=== PATIENT | male | born 1945 | race Caucasian/White ===

== ENCOUNTER 2024-10-29 16:55 | Inpatient (IN) | payer OTHER, SELFPAY ==
[2024-10-29] VITALS (11 sets, daily range): BP systolic 113–151; BP diastolic 72–91
--- NOTE | 2024-10-29 08:09 | W.PN.CARDCBS ---
Addendum entered and electronically signed by Joel Antunez DO 10/29/24 13:37:
I saw and examined the patient.
The Reactor Service Operator's note was reviewed and I agree with the note.
Comment:
See update note for discussion on ICD.
Original Note:
Today's Communication / Plan
-
ICD implant today
restart OAC post op when stable
monitor tele 24h post procedure
Impression / Plan
-
This is the H&P summary.
Full H&P scanned into chart.
PCP: Dariel Arevalo MD
CDY: Jason Esteves MD
78 yo hx of HTN, LVH, FAHAD on CPAP, PAF s/p PVI (01/2020) off anticoagulation presenting with several weeks of intermittent palpitations and SOB. He became diaphoretic and dizzy after shower, brought to ER, initial EKG WCT at 180 with normal BP,
plan was to cardiovert but after sedation he converted to SR with PACs. He was given a diltiazem bolus and etomidate. He is now in rate controlled AF. Initial EKG favor AF or flutter with aberrancy with baseline RBBB vs VT.
Taken to laborer construction or leak gang however prior to gaining access or sedation went back into WCT, again suspicious for monomorphic VT, although also may have been SVT with aberrancy. He was cardioverted to SR with PVCs, and PACs, given Amiodarone bolus 150mg X 1.
LHC 7/2 with mid/distal RCA 100% occlusion, unsuccessful PCI attempt. Upon return from laborer construction or leak gang, he again went into WCT 180s, more regular w/RBBB. Decision was to cardiovert but after given amiodarone and IV lidocaine, he then did spontaneously
convert to SR.
It is unclear if this is scar VT v. AFlutter w/aberrancy, but given cath report would favor scar VT at this point.
Echo 7/2- preserved LVSF, EF 50-55%, basal/mid inferoseptal/inf HK, severe biatrial dilation, mod MR
IMPRESSION:
WCT, VT v. SVT w/aberrancy
CAD, RCA KINESEOLOGIST, from cath 10/24/24
Mildly elevated troponin- non ischemic myocardial injury r/t arrhythmia/cardioversion
BLE edema w/LLE DVT, 10/24/24
PAF w/prior PVI (01/2020, at w/Dr. Peck)
Recurrent AF/AFlutter
Mod MR
LUTHER, resolved
HTN
LVH
FAHAD/CPAP
Anxiety
PLAN:
New onset WCT that was unclear if scar VT v/AFlutter w/aberrancy
One EKG sent from [facility]- not the one with VT- requested EKGs to best review
[facility] with RCA KINESEOLOGIST, echo with inferoseptal/inferior HK w/preserved EF
would move forward with secondary prevention ICD implant today
Amio gtt switched 400mg PO TID, home on 200 BID for 30 days, then decrease to 200mg/daily
Continue metoprolol xl 100mg/daily
[id number] and will resume OAC post device when stable- had started eliquis at [facility] but on hold now for OR today
New finding of LLE DVT- to be anticoagulated with eliquis post procedure- will need followup LE US per Dr. Esteves in 6 months
LUTHER noted- creat 1.46/GFR 59 initially, now resolved to 0.96/>60 this morning
Progress Note - Winding Rack Operator
Subjective
Date of Service: October 29, 2024
--- NOTE | 2024-10-29 12:07 | W.PN.UPDATE ---
Update Note
Progress Note Update
Briefly, patient is a very pleasant 78-year-old male with a past medical history significant for hypertension, LVH, sleep apnea on CPAP, A-fib status post PVI 2020, CAD nonrevascularizable with regional wall motion abnormality on echocardiogram
(inferoseptal and inferior hypokinesis EF 55-60), valvular heart disease with mild to moderate MR, lower extremity DVT who experienced a wide-complex tachycardia at 180 bpm (RB NW axis, discordant II/III with late transition V5-V6 which is different
from patient's sinus rhythm with RBBB at baseline) treated with amiodarone and direct-current cardioversion. Patient underwent left heart catheterization which demonstrated chronic total occlusion and inability to revascularize. Patient's
echocardiogram as mentioned demonstrated an EF of 55-60% with regional wall motion abnormality (inferior, inferoseptal). We had discussed that electrophysiology study may help to differentiate atrial versus ventricular arrhythmias however if
electrophysiology study is unremarkable I remain concerned that patient's wide-complex tachycardia by morphology and history is consistent with ventricular tachycardia. In review of patient's EKGs and rhythm strips, there appears to be evidence of
A-V dissociation with this wide-complex rhythm. In the setting of patient's ischemic heart disease which is not revascularizable, regional wall motion abnormality concerning for scar, sustained monomorphic wide-complex tachycardia concerning for
ventricular tachycardia which is now being treated by amiodarone and had received cardioversions for samaritan of sinus rhythm, I believe that patient would benefit from implant of a dual-chamber secondary prevention ICD. Additionally, patient
had previously experienced diaphoresis and dizziness associated with this wide-complex tachycardia concerning for ventricular tachycardia. Regarding ICD, we discussed ICD indications for primary prevention and secondary prevention patients
including 5 year sudden risk. We also discussed implant procedure in detail including an approximate 1:1000 risk of PA/stroke/ and a 1% risk of pneumothorax/tamponade/infection/bleeding. We discussed the less than 1% risk of wires
bending, breaking, or tearing through the lifetime of the device requiring surgery or procedure to fix. We discussed the less than 1% risk of device/lead advisory or recall and requirement for monitoring for surveillance. We also discussed post
procedure implant restrictions including positions to avoid with implant arm for first six weeks after implant as well as driving restrictions. We discussed post implant possibility of inappropriate shocks from device and programming strategies to
minimize this risk. I took time to answer all questions to patient and his . Patient verbalized understanding and agreed with this plan. Consent signed. Patient remains NPO.
--- NOTE | 2024-10-29 14:57 | W.ICD.CONTRA ---
Post ICD/WAGON WASHER-D
-
History of [place]?: No
LV Function
Left ventricular function study result?: Ejection Fraction >/= 40%
ACEI/ARB/ARNI
Patient already on ACEI/ARB/ARNI: No
ACEI/ARB/ARNI Not Indicated: Left Ventricular EF >/= 40%
Beta-Dilia
Patient already on Beta Dilia: Yes
--- NOTE | 2024-10-29 16:33 | ITS.CL.ICD ---
Grants Analyst - ICD
Implantable Cardioverter Defibrillator
Procedure Report:
Primary Nip Wrapper: Dr Brennen Esteves
Procedure Date: 10/29/2024
Name of procedure:
1. Placement of a dual-chamber ICD
2. Subclavian venography
History:
1. Patient is a very pleasant 78-year-old male with a past medical history significant for hypertension, LVH, sleep apnea on CPAP, A-fib status post PVI 2020, CAD nonrevascularizable with regional wall motion abnormality on echocardiogram
(inferoseptal and inferior hypokinesis EF 55-60), valvular heart disease with mild to moderate MR, lower extremity DVT who experienced a wide-complex tachycardia at 180 bpm (RB NW axis, discordant II/III with late transition V5-V6 which is different
from patient's sinus rhythm with RBBB at baseline) treated with amiodarone and direct-current cardioversion. Patient underwent left heart catheterization which demonstrated chronic total occlusion and inability to revascularize. Patient's
echocardiogram as mentioned demonstrated an EF of 55-60% with regional wall motion abnormality (inferior, inferoseptal). In review of patient's EKGs and rhythm strips, there appears to be evidence of A-V dissociation with this wide-complex rhythm
more consistent with ventricular tachycardia. In the setting of ischemic heart disease which was not revascularizable, regional wall motion abnormality concerning for score, sustained monomorphic wide-complex tachycardia concerning for ventricular
tachycardia treated with amiodarone and defibrillation, patient to undergo elective secondary prevention ICD implantation.
2. Please refer to H&P for complete history.
Indication:
Sustained monomorphic ventricular tachycardia
See above
Methods:
After informed consent was obtained, the patient was brought to the EP laboratory in a postabsorptive, nonsedated state. Peripheral IV access was established. Prophylactic antibiotics were administered prior to incision. Continuous ECG, blood
pressure, and pulse oximetry were initiated. Cardioversion patch electrodes were placed on the patient's chest and back. A grounding patch was applied to the skin. Sedation was administered by anesthesia services.
In order to define the extrathoracic portion of the subclavian vein and exclude significant venous obstruction or anomalous anatomy, subclavian venography was performed prior to the procedure. Using the patient's left peripheral IV, contrast was
injected and images were recorded. The left subclavian vein and SVC were found to be widely patent.
The left chest was prepared and draped in a sterile fashion. A time-out was performed. Local anesthesia was injected in the subcutaneous tissue in the infraclavicular area. An incision was made medial to the deltopectoral groove. The subcutaneous
tissue was dissected the level of the prepectoral fascia. A subcutaneous pocket was created. Under fluoroscopic guidance and with the assistance of the images from the venogram, 2 separate venipunctures were made using micropuncture and modified
Seldinger technique. These were performed in the extrathoracic portion of the subclavian vein. Guidewires were passed and two peel-away sheaths were placed, and used to advance leads into the circulation.
Using fluoroscopic guidance, the leads were positioned. The RV lead was advanced to the RV/outflow tract. Ventricular ectopy was recorded. Lead was gently retracted from the RVOT brief ventricular ectopy occurred and lead was withdrawn into the
right atrium. Spontaneous ectopy continued and sustained ventricular tachycardia was noted with a cycle length of 290 ms. This did not self terminate and patient was synchronized cardioverted to sinus rhythm. Under fluoroscopy again RV lead was
gently advanced in the RVOT with documentation of ventricular ectopy. Lead was gently withdrawn and placed in the RV apical septum. Images were taken in VALENTIN and GEORGIAN views to ensure appropriate lead placement. The lead tip was subsequently
positioned on the apical septum. Adequate sensing and pacing parameters were found, and no diaphragmatic stimulation was seen with high-output pacing. No further spontaneous sustained ventricular tachycardia was noted.
Next, the right atrial lead was positioned in the right atrial appendage. Adequate sensing and pacing parameters were found, and no diaphragmatic stimulation was seen with high-output pacing. Both sheaths were split, and the leads were secured to
the fascia with Ethibond ties.
The pocket was flushed with antibiotic solution and hemostasis was assured. The generator was connected to the leads and placed inside the pocket. Antibiotic envelope was used. Floseal was applied. The wound was closed with 3 running layers of
absorbable suture, and steri-strips were applied. Dressing applied over steri-strips in standard fashion.
Following the procedure, the patient was taken to the recovery area in stable condition. A chest x-ray was obtained in the holding area.
Lead parameters and device programming:
- RA Lead (Tim, Model IJL2264/52, #[id number]): Sensing 3.0 mV, Pacing threshold 1.0 V at 0.4 ms, Imp 440 ohm
- RV Lead (Tim, Model [id number]/65, #[id number]): Sensing 5.7 mV, Pacing threshold 0.5 V at 0.4 ms, Imp 500 ohm, HV impedance 65 ohm
- Device: Tim, Model [id number] ICD (#[id number]), programmed DDDR 60-120 ppm
- Zones: Monitor 150�171, VT zone 171�200 with ATP with shock, VF zone greater than 200 ATP while charging with shock
Conclusions:
1. Successful placement of a secondary prevention dual-chamber ICD
2. Subclavian venography
Recommendations:
- Admit
- Portable chest x-ray in recovery or room.
- Device interrogation in a.m.
- IV antibiotics while the patient is admitted.
- Pressure dressing to be removed in AM, aquacell to remain until wound check
- If patient and site stable, plan to resume Eliquis
- Continue amiodarone 400 mg 3 times daily with planned reduction to 200 mg 2 times daily at time of discharge
- Follow-up for incision check in the office in 7-10 days post-discharge
Joel Antunez DO, [facility], [facility]
Clinical Cardiac It Security Project Manager
cc: Dariel Arevalo MD; Jason Esteves MD
[2024-10-29] MEDS: LASIX 40 MG IV (16:42)
[2024-10-29] MEDS: PACERONE 400 MG PO ×2 (16:42→22:45)
--- NOTE | 2024-10-29 17:16 | PTCARENOTE ---
Rec'd pt from EP lab. Tele- SR w/ A-pacing and BBBC. HR 60-70s. EKG obtained. L chest wall w/ steri-strips, Aquacel, and pressure dsg c/d/i. No bleeding/hematoma noted. L arm immobilizer on. Activity restrictions reviewed w/ pt and verbalizes
understanding. Pt has no complaints CP/discomfort at this time. Oriented pt to room. Currently in bed; call luigi w/in reach.
--- NOTE | 2024-10-29 21:00 | PTCARENOTE ---
Patient received resting in bed watching television. Patient A+A+Ox3. No neurological deficits noted. No c/o headache, dizziness or lightheadedness. Room air. SpO2 97%. Left anterior chest wall dressing intact - New AICD placement. Left arm
immobilizer intact. Positive circulation, sensation and mobility to left upper extremity. No c/o numbness, tingling, pain or discomfort. Patient with no c/o chest pain, pressure or discomfort. Abdomen soft, round. Normoactive bowel sounds. No
BM. No c/o nausea. No vomiting. Voiding without difficulty. Lower extremity edema. Positive, palpable pulses. Assessment as documented.
[2024-10-29] MEDS: ANCEF 5 IV (22:45)
--- NOTE | 2024-10-30 | PTCARENOTE ---
Patient sleeping without difficulty. Assessment as documented.
[2024-10-30 04:00] VITALS: BP 126/65
[2024-10-30 04:02] VITALS: BP 126/65
[2024-10-30] MEDS: TYLENOL 650 MG PO (04:22)
[2024-10-30 04:29] LABS: Hematocrit 37.6 % (39.0-52.0); Hemoglobin 12.4 g/dL (13.0-18.0); Mean Corp Hgb Conc. 33.0 g/dL (33.0-37.0); Mean Corpuscular Volume 95.4 fL (80.0-94.0); Platelet Count 173 10^3/uL (130-400); Red Cell Dist. Width 13.6 % (11.5-14.5)
[2024-10-30 04:52] LABS: Blood Urea Nitrogen 17 mg/dl (9-20); Calcium 9.6 mg/dl (8.4-10.2); Carbon Dioxide 28 mmol/L (22-30); Chloride 104 mmol/L (98-107); Glucose 97 mg/dl (70-99); Potassium 4.1 mmol/L (3.5-5.1); Sodium 138 mmol/L (135-145); eGFR > 60.00
[2024-10-30] MEDS: ANCEF 5 IV (05:41)
[2024-10-30 05:50] VITALS: BMI 35.3
[2024-10-30 05:50] LABS: Hepatitis C Antibody Negative (Negative)
[2024-10-30 08:11] VITALS: BP 141/78
[2024-10-30] MEDS: PACERONE 400 MG PO (08:11)
[2024-10-30] MEDS: TOPROL XL 100 MG PO (08:11)
[2024-10-30] MEDS: ELIQUIS 5 MG PO (08:11)
--- NOTE | 2024-10-30 09:13 | W.PN.CARDCBS ---
Addendum entered and electronically signed by Joel Antunez DO 10/30/24 10:42:
I saw and examined the patient.
The Lubrication Equipment Servicer's note was reviewed and I agree with the note.
Comment:
Patient seen and examined this morning. No acute events overnight. Patient resting comfortably in chair. Reports LE swelling and mild TTP at device site. No other cp, sob, lh, dizziness, or weakness. No further episodes of palpitations.
GENERAL: no acute distress
EYE: sclera anicteric
NECK: Supple, no JVD, no carotid bruit appreciated
ENT: normal nose, moist mucosal membranes
CARDIAC: Regular rate and rhythm, +S1/S2, no murmur, rubs, or gallops; L CIED site c/d/i, no swelling, erythema or warmth; fading/healing ecchymosis noted at axilla
CHEST/PULMONARY: Normal effort, clear breath sounds
ABDOMEN: Soft, without focal tenderness or distention
NEUROLOGICAL: Alert and oriented x3
SKIN: Warm and dry, no rash; 2+ BL LE edema
PSYCH: Normal and appropriate interaction.
EKG APVS; telemetry APVS PVC; no NSVT/VT, no AF/AFL
Device interrogation shows stable sensing, pacing threshold, and impedance values
CXR no PTX
A/P as below
Patient is status post secondary prevention DC ICD for sustained monomorphic ventricular tachycardia
Continue amiodarone 400 mg TID while admitted, transition to 200 mg BID on DC for 1 month then daily after 1 month period
IV lasix this AM and monitor response. May require additional IV lasix therapy vs oral lasix on DC (diuretic naive) with swelling and noted congestion
OK to resume OAC and monitor site
Original Note:
Today's Communication / Plan
-
post ICD for WCT/VT
LLE DVT
CM to eval cost of OAC
Amiodarone loading
Impression / Plan
-
This is the H&P summary.
Full H&P scanned into chart.
PCP: Dariel Arevalo MD
CDY: Jason Esteves MD
78 yo hx of HTN, LVH, FAHAD on CPAP, PAF s/p PVI (01/2020) off anticoagulation presenting with several weeks of intermittent palpitations and SOB. He became diaphoretic and dizzy after shower, brought to ER, initial EKG WCT at 180 with normal BP,
plan was to cardiovert but after sedation he converted to SR with PACs. He was given a diltiazem bolus and etomidate. He is now in rate controlled AF. Initial EKG favor AF or flutter with aberrancy with baseline RBBB vs VT.
Taken to concrete laborer however prior to gaining access or sedation went back into WCT, again suspicious for monomorphic VT, although also may have been SVT with aberrancy. He was cardioverted to SR with PVCs, and PACs, given Amiodarone bolus 150mg X 1.
LHC 10/24 with mid/distal RCA 100% occlusion, unsuccessful PCI attempt. Upon return from concrete laborer, he again went into WCT 180s, more regular w/RBBB. Decision was to cardiovert but after given amiodarone and IV lidocaine, he then did spontaneously
convert to SR.
It is unclear if this is scar VT v. AFlutter w/aberrancy, but given cath report would favor scar VT at this point.
Echo 10/24- preserved LVSF, EF 50-55%, basal/mid inferoseptal/inf HK, severe biatrial dilation, mod MR
IMPRESSION:
WCT, VT v. SVT w/aberrancy
CAD, RCA SOLUTIONS OPERATOR, from cath 10/24/24
Mildly elevated troponin- non ischemic myocardial injury r/t arrhythmia/cardioversion
BLE edema w/LLE DVT, 10/24/24
PAF w/prior PVI (01/2020, at w/Dr. Peck)
Recurrent AF/AFlutter
Mod MR
LUTHER, resolved
HTN
LVH
FAHAD/CPAP
Anxiety
PLAN:
New onset WCT that was unclear if scar VT v/AFlutter w/aberrancy
LHC 10/24/24 with RCA SOLUTIONS OPERATOR, echo with inferoseptal/inferior HK w/preserved EF
Post secondary prevention ICD 10/29/24, site stable
tele Apaced
CXR no PTX with some atelectasis and mild pulmonary edema
Will give another dose of IV lasix today
Continue Amiodarone load while hospitalized, will decrease to 200mg bid for 1 mo, then decrease to daily
Continue metoprolol xl 100mg/daily
[id number]=3 and will resume OAC post device when stable- had started Eliquis at [facility] but on hold now for OR today - CM to eval cost
New finding of LLE DVT- to be anticoagulated with Eliquis post procedure- will need followup LE US per Dr. Esteves in 6 months
Activity restrictions reviewed
inc check 1 week at [facility]
plan for d/c home this afternoon
Progress Note - Junior Electrical Engineer
Subjective
Date of Service: October 30, 2024
denies cp, sob
Objective
Labs:
10/30/24 04:13
10/30/24 04:13
Labs
Hgb 12.4 g/dL (13.0-18.0) L 10/30/24 04:13
Hct 37.6 % (39.0-52.0) L 10/30/24 04:13
Plt Count 173 10^3/uL (130-400) 10/30/24 04:13
Sodium 138 mmol/L (135-145) 10/30/24 04:13
Potassium 4.1 mmol/L (3.5-5.1) 10/30/24 04:13
BUN 17 mg/dl (9-20) 10/30/24 04:13
Creatinine 1.1 mg/dL (0.7-1.3) 10/30/24 04:13
Glucose 97 mg/dl (70-99) 10/30/24 04:13
Vital Signs and I&O:
Vital Signs
Temp Pulse Resp BP Pulse Ox
98.1 F 60 16 141/78 97
10/30/24 08:11 10/30/24 08:45 10/30/24 08:11 10/30/24 08:11 10/30/24 08:11
Vital Signs
Temp Pulse Resp BP Pulse Ox
98.1 F 60 16 141/78 97
10/30/24 08:11 10/30/24 08:45 10/30/24 08:11 10/30/24 08:11 10/30/24 08:11
Intake & Output
10/28/24 10/29/24 10/30/24 10/31/24
06:59 06:59 06:59 06:59
Intake Total 720 / 720
Output Total 1125 / 1125
Balance -405 / -405
Physical Exam
Physical Exam
NAD, AOX3
S1, S2, RRR
CTAB, diminished b/l bases, non labored
SNTND bsx4
L CW dressing c/d/i no HT, pressure dressing removed
+3 b/l LE pitting edema
[2024-10-30] MEDS: LASIX 40 MG IV (09:24)
[2024-10-30 11:30] VITALS: BP 113/75
--- NOTE | 2024-10-30 14:42 | W.DS.TRANS ---
DC Summary - Mobility Engineer
-
Discharge Instructions:
Discharge Diagnosis/Procedures Ventricular Tachycardia, s/p ICD implant
Left leg DVT
Diet Low Cholesterol,2 Gram Sodium
Driving Restrictions No driving for 1 week
Bathing Restrictions OK to Shower
Blood Work Check BMP on Tuesday
Specialty Instructions Weigh Daily
Instructions:
Stand-Alone Forms: DC Inst - Implanted Device
Changes to Home Medications: Yes
Discharge Medications:
DC Medications w/original date entered in [facility]
Power Beets Circulation 4 gm PO DAILY 02/21/20
glucosamine sulfate dipotassium Cl 500 mg-chondroitin 400 mg capsule (Glucosamine Sulfate 2 KCL-Chondroitin) 1 cap PO DAILY 02/21/20
awsiwvqg-lfsiyfqp-vmcmr acid 400 mcg-vit K 20 mcg-lycop 300 mcg tablet (Men's Multivitamin) 1 ea PO DAILY 02/21/20
omega-3 1,050 qa-oen-xln-dpa-fish oil 1,200 mg capsule (Philo-3 (with docosapentaenoic acid)) 1 mg PO DAILY 02/21/20
turmeric root extract 500 mg capsule 1,000 mg PO DAILY 02/21/20
ascorbic acid (vitamin C) 500 mg tablet (Vitamin C) 500 mg PO DAILY 10/29/24
cholecalciferol (vitamin D3) 25 mcg (1,000 unit) chewable tablet (Vitamin D3) 25 mcg PO DAILY 10/29/24
metoprolol succinate 100 mg tablet,extended release 24 hr 100 mg PO DAILY 10/29/24
zinc 50 mg tablet 50 mg PO DAILY 10/29/24
amiodarone 200 mg tablet 200 mg PO BID #60 tabs 10/30/24
apixaban 5 mg tablet (Eliquis) 5 mg PO BID #60 tabs 10/30/24
furosemide 40 mg tablet (Lasix) 40 mg PO DAILY #30 tabs 10/30/24
Home Medication Changes
new to amiodarone, eliquis and lasix
Pending Results: No
[2024-10-30 14:48] VITALS: BP 119/74
--- NOTE | 2024-10-30 15:33 | CM ---
spoke to pt in room, he is prev indep, lives with his in a 2 story home with 2 steps to enter. he denies any dc planning needs or dme's. plan is for dc to home when medically stable.
--- NOTE | 2024-10-30 15:38 | CM ---
priced eliquis with pts perscript plan. his cost is $146- this is a tier 3 medication. pt agreeable to this peck.
--- NOTE | 2024-10-30 16:11 | PTCARENOTE ---
IV and tele removed. Discharge instructions reviewed w/ pt and verbalizes understanding. Belongings collected and sent home w/ pt. Escorted via WC and staff assist to home.
== END 2024-10-30 16:12 | disposition home or self-care (01) | DRG 277 ==
LOC: IVU 16:55
PROVIDERS: Nurse Practitioner; ADMITTING PHYSICIAN Internal Medicine Cardiovascular Disease; FAMILY PHYSICIAN Family Medicine
PROC: 02H63KZ Insertion of Defibrillator Lead into Right Atrium, Percutaneous Approach (ICD-10-PCS; 2024-10-29)
PROC: B5181ZZ Fluoroscopy of Superior Vena Cava using Low Osmolar Contrast (ICD-10-PCS; 2024-10-29)
PROC: 5A2204Z Restoration of Cardiac Rhythm, Single (ICD-10-PCS; 2024-10-29)
PROC: 3E0102A Introduction of Anti-Infective Envelope into Subcutaneous Tissue, Open Approach (ICD-10-PCS; 2024-10-29)
PROC: B5171ZZ Fluoroscopy of Left Subclavian Vein using Low Osmolar Contrast (ICD-10-PCS; 2024-10-29)
PROC: 0JH608Z Insertion of Defibrillator Generator into Chest Subcutaneous Tissue and Fascia, Open Approach (ICD-10-PCS; 2024-10-29)
PROC: 02HK3KZ Insertion of Defibrillator Lead into Right Ventricle, Percutaneous Approach (ICD-10-PCS; 2024-10-29)
PROC: 4B02XTZ Measurement of Cardiac Defibrillator, External Approach (ICD-10-PCS; 2024-10-30)
DX: I47.29 Other ventricular tachycardia (principal); I5A Non-ischemic myocardial injury (non-traumatic); N17.9 Acute kidney failure, unspecified; J98.11 Atelectasis; J81.1 Chronic pulmonary edema; I47.10 Supraventricular tachycardia, unspecified; I10 Essential (primary) hypertension; I25.10 Atherosclerotic heart disease of native coronary artery without angina pectoris; I25.82 Chronic total occlusion of coronary artery; I34.0 Nonrheumatic mitral (valve) insufficiency; I45.10 Unspecified right bundle-branch block; I48.92 Unspecified atrial flutter; I48.0 Paroxysmal atrial fibrillation; G47.33 Obstructive sleep apnea (adult) (pediatric); F41.9 Anxiety disorder, unspecified; Z86.718 Personal history of other venous thrombosis and embolism
CPT/HCPCS: 33249; 71045; 80048; 85027; 86803; 93005; C1721; C1892; C1895; C1898; Q9967